=== PATIENT | female | born 1955 | race Caucasian/White ===

== ENCOUNTER 2019-09-20 09:48 | Outpatient (CLI) | payer MEDICARE, SELFPAY ==
--- NOTE | ~2019-09-20 | MM_ITS ---
EXAMINATION: MM screening rima BI w jez HISTORY: Screening mammogram, family history of breast cancer in her mother and daughter. TECHNIQUE: Craniocaudal and mediolateral oblique 3-D tomosynthesis images were obtained and synthetic 2-D images were generated. CAD analysis was submitted and interpreted. COMPARISON: 04/13/2018 BREAST PARENCHYMAL COMPOSITION: The breasts are almost entirely fatty. FINDINGS: There is no evidence of suspicious mass, calcification, or architectural distortion to sugg est malignancy in either breast. There has been no suspicious interval change. IMPRESSION: 1. No mammographic evidence of malignancy. 2. Recommend routine screening mammography in one year. BI-RADS Category 1: Negative Reviewed, dictated and finalized at location A.
== END 2019-09-20 09:49 | disposition home or self-care (01) ==
PROVIDERS: PCP Family Medicine; Visit Provider Physician Assistant
DX: Z12.31 Encounter for screening mammogram for malignant neoplasm of breast (principal)
CPT/HCPCS: 77063; 77067

== ENCOUNTER 2019-12-14 11:17 | Emergency (ER) | payer MEDICARE, SELFPAY ==
--- NOTE | ~2019-12-14 | XR_ITS ---
XR chest 1V portable DATE: 12/14/2019 12:03 INDICATION: Cough, shortness of breath TECHNIQUE: Portable AP chest on 12/14/2019 at 1202 hours COMPARISON: None FINDINGS: Normal heart size. No hilar or mediastinal enlargement. No pulmonary infiltrate or consolid ation, pleural effusion or pulmonary vascular congestion or pneumothorax. IMPRESSION: No active cardiopulmonary disease Reviewed, dictated and finalized at location A.
[2019-12-14 11:19] VITALS: BP 161/84; PULSE 111; RESP 20; TEMP 36.3; O2SAT 100
--- NOTE | 2019-12-14 11:22 | ECG_ITS ---
Measurements Intervals [place] Rate: 110 P: 52 AK: 154 QRS: 14 QRSD: 82 T: 24 QT: 327 QTc: 444 Interpretive Statements SINUS TACHYCARDIA POSSIBLE LEFT ATRIAL ENLARGEMENT BASELINE WANDER- II, III, AVR, AVL, AVF ABNORMAL ECG Electronically Signed On 12-14-2019 14:18:53 CDT by Jonny Johnson D.O.
[2019-12-14 11:53] VITALS: PULSE 96
[2019-12-14 12:01] LABS: Basophils Percent Auto 0.3 % (0.2-1.2); Eosinophils Absolute Auto 0.3 K/mm3 (0-0.3); Eosinophils Percent Auto 4.3 % (0-4.4); Hematocrit 29.4 % (37.0-47.0); Hemoglobin 8.3 g/dL (12.0-15.0); Immature Granulocyte Absolute 0.03 K/mm3 (0.00-0.031); Immature Granulocyte Percent A 0.4 % (0-0.5); Lymphocytes Absolute Auto 1.57 K/mm3 (0.9-3.2); Lymphocytes Percent Auto 21.1 % (18.3-44.2); Mean Corpuscular HGB Conc 28.2 g/dl (32-36); Mean Corpuscular Hemoglobin 18.8 pg (26-34); Mean Corpuscular Volume 66.7 fl (80-100); Mean Platelet Volume 10.2 fl (7.4-10.4); Monocytes Absolute Auto 0.6 K/mm3 (0.1-0.6); Monocytes Percent Auto 8.5 % (2.6-8.5); Neutrophils Absolute Auto 4.9 K/mm3 (1.3-6.7); Neutrophils Percent Auto 65.4 % (45.5-73.1); Platelet Count Result 401 k/mm3 (150-375); Red Blood Count 4.41 M/mm3 (4.2-5.4); Red Cell Distribution Width 17.8 % (11.5-14.5); White Blood Count 7.4 K/mm3 (4.5-10.0)
[2019-12-14 12:05] LABS: Hypochromasia 3+ (NORMAL); Ovalocytes 1+ (NORMAL); Platelet Estimate Increased (Adequate); Stomatocytes 1+ (NORMAL)
[2019-12-14 12:09] LABS: Lactic Acid Reflex 1.6 mmol/L (0.7-2.1)
[2019-12-14 12:10] LABS: Blood Urea Nitrogen 10 mg/dL (7-17); Calcium 9.8 mg/dL (8.4-10.2); Carbon Dioxide 26 mmol/L (22-30); Chloride 107 mmol/L (98-107); Estimated CRCL calculation 78 ml/min; Estimated Glomerular Filt Rate > 60; Glucose 91 mg/dL (65-105); Potassium 3.7 mmol/L (3.4-5.0); Sodium 140 mmol/L (137-145)
[2019-12-14 12:21] LABS: Troponin I < 0.012 ng/mL (0.000-0.034)
[2019-12-14 12:46] VITALS: BP 123/58; PULSE 86; RESP 16; O2SAT 96
--- NOTE | 2019-12-14 13:29 | ED.SOB ---
HPI - SOB/Dyspnea General Chief Complaint: Shortness of Breath/Dyspnea Stated Complaint: SOB, cough Time Seen by Provider: 12/14/19 11:28 History of Present Illness HPI Narrative: Patient is a 64-year-old female who presents the ER with shortness of breath. Ongoing for the last couple weeks. Worse with exertion like walking up her stairs. No association with chest pain or chest pressure. No nausea/vomiting/diaphoresis. She has developed a cough over the last week. No known sick contacts. She has worked as a business development manager. No diarrhea or constipation, no weight changes. Contacted her PCP who recommended she obtain COVID evaluation. Related Data Home Medications Medication Instructions Recorded Confirmed lisinopril 12/14/19 Allergies Allergy/AdvReac Type Severity Reaction Status Date / Time Penicillins Allergy Unknown Itching Verified 12/14/19 11:22 Review of Systems Review of Systems: All systems reviewed & are unremarkable except as noted in HPI and below Constitutional: Constitutional: Denies chills, Denies fever(s) and Denies weakness ENT: Denies nasal congestion and Denies sore throat Cardiovascular: Cardiovascular: Denies chest pain and Denies radiating jaw, neck or arm pain Respiratory: Respiratory: Denies chest congestion, Reports cough, Reports dyspnea and Denies wheezing Gastrointestinal: Gastrointestinal: Denies abdominal pain, Denies nausea and Denies vomiting Neurologic: Denies dizziness, Denies numbness and Denies weakness PMFSH Past Medical History Medical History (Updated 12/14/19 @ 14:19 by Enrique Lackey MD) Hypertension Surgical History Surgical History (Updated 12/14/19 @ 14:14 by Enrique Lackey MD) No pertinent past surgical history Social History Social History (Updated 12/14/19 @ 14:15 by Enrique Lackey MD) Smoking status: Never smoker Gender identity (if verbalized by the patient): Female Exam Narrative: Exam Narrative: GENERAL: Well-appearing, well-nourished, and in no acute distress. HEAD: Normocephalic, atraumatic. ENT: Mucous membranes moist. NECK: Supple. CHEST: Clear to auscultation. No respiratory distress. HEART: Regular rate and rhythm. No murmur heard. Normal peripheral pulses. ABDOMEN: Soft, nontender, nondistended EXTREMITIES: Normal range of motion. No edema. SKIN: Warm, dry, no rash. NEURO: Alert and oriented x3. PSYCH: Normal mood and affect. Course Course Emergency Course: Patient informed of results. Reports that she gave up eating meat 3 years ago. Has never been told she was anemic before other than during . Will send anemia studies and start her on iron as well as multivitamin. She should follow-up with her primary care doctor. Symptoms likely due to anemia. Vital Signs Vital signs: Vital Signs Temperature 97.4 F L 12/14/19 11:19 Pulse Rate 111 H 12/14/19 11:19 Respiratory Rate 20 12/14/19 11:19 Blood Pressure 161/84 H 12/14/19 11:19 Pulse Oximetry 100 12/14/19 11:19 Temperature 97.4 F L 12/14/19 11:19 Pulse Rate 86 12/14/19 12:46 Respiratory Rate 16 12/14/19 12:46 Blood Pressure 123/58 L 12/14/19 12:46 Pulse Oximetry 96 12/14/19 12:46 MDM - SOB/Dyspnea Lab Data Result diagrams: 12/14/19 11:44 12/14/19 11:44 Labs: Lab Results 12/14/19 12/14/19 12/14/19 Range/Units 11:44 11:44 11:44 WBC 7.4 (4.5-10.0) K/mm3 RBC 4.41 (4.2-5.4) M/mm3 Hgb 8.3 L (12.0-15.0) g/dL Hct 29.4 L (37.0-47.0) % MCV 66.7 L (80-100) fl MCH 18.8 L (26-34) pg MCHC 28.2 L (32-36) g/dl RDW 17.8 H (11.5-14.5) % Plt Count 401 H (150-375) k/mm3 MPV 10.2 (7.4-10.4) fl Immature Gran % (Auto) 0.4 (0-0.5) % Neut % (Auto) 65.4 (45.5-73.1) % Lymph % (Auto) 21.1 (18.3-44.2) % [place] % (Auto) 8.5 (2.6-8.5) % Eos % (Auto) 4.3 (0-4.4) % Baso % (Auto) 0.3 (0.2-1.2) % Lymph # (Auto) 1.57 (0.9-3.2)
[2019-12-14 13:51] VITALS: BP 126/63; PULSE 92; RESP 18; O2SAT 99
[2019-12-14 14:41] VITALS: BP 124/74; PULSE 90; RESP 16; O2SAT 99
[2019-12-14 16:20] LABS: Folic Acid > 20.0 ng/mL (2.76->20)
[2019-12-16 15:57] LABS: SARS-CoV-2 RNA PCR Negative
== END 2019-12-14 14:44 | disposition home or self-care (01) ==
PROVIDERS: Emergency Provider Emergency Medicine; PCP Family Medicine
DX: D64.9 Anemia, unspecified (principal); Z20.828 Contact with and (suspected) exposure to other viral communicable diseases; I10 Essential (primary) hypertension; R00.0 Tachycardia, unspecified; R94.31 Abnormal electrocardiogram [ECG] [EKG]
CPT/HCPCS: 36415; 71045; 80048; 82607; 82728; 82746; 83540; 83550; 83605; 84484; 85025; 87040; 87635; 93005; 99284; C9803; U0003

== ENCOUNTER 2020-02-05 10:22 | Emergency (ER) | payer MEDICARE, SELFPAY ==
--- NOTE | ~2020-02-05 | CT_ITS ---
EXAMINATION: CT abdomen pelvis w con EXAM DATE: 02/05/2020 11:21 INDICATION: Anemia. TECHNIQUE: Spiral CT of the abdomen and pelvis was performed following intravenous injection of 100 m L Omnipaque 350. Axial, coronal and sagittal images were reviewed. The dose-length product (DLP) fo r this examination was 1342.26 mGy-cm. The exposure was tailored according to patient size (auto mA exposure control), and iterative reconstruction (ASIR) was used as additional dose reduction techniqu e. There is no prior study for comparison. FINDINGS: The liver, spleen, adrenal glands and pancreas are unremarkable. Gallbladder is unremarkab le. No biliary obstruction. Portal and splenic veins are patent. Kidneys enhance symmetrically. T here is no hydronephrosis. The uterus is unremarkable. The bladder is unremarkable. There is no retroperitoneal or pelvic lymphadenopathy. The appendix is normal. There are a few scattered colonic diverticulosis. There is no adjacent infla mmatory change to suggest diverticulitis. There is moderate-sized gastroesophageal hiatal hernia. Th ere is expected amount of colonic stool. No free intraperitoneal gas. The heart is normal in size . There are no pericardial or pleural effusions. The lung bases are unremarkable. There are no ost eoblastic or osteolytic lesions identified. IMPRESSION: 1. Moderate-sized gastroesophageal hiatal hernia. 2. Mild colonic diverticulosis. Reviewed, dictated and finalized at location A.
--- NOTE | ~2020-02-05 | XR_ITS ---
EXAMINATION: XR chest 2V EXAM DATE: 02/05/2020 11:07 INDICATION: Weakness, central chest pain for 3 weeks. TECHNIQUE: Frontal and lateral projections of the chest obtained and reviewed. Comparison is made to prior examination from 12/14/2019. FINDINGS: The lungs are clear. There are no pleural effusions. The cardiomediastinal silhouette is within normal limits. There is no pneumothorax suspected. The bones and soft tissues are unremarkab le. IMPRESSION: No acute cardiopulmonary findings. Reviewed, dictated and finalized at location A.
[2020-02-05 10:26] VITALS: BP 143/77; PULSE 115; RESP 18; TEMP 37; O2SAT 97
--- NOTE | 2020-02-05 10:31 | ECG_ITS ---
Measurements Intervals [place] Rate: 113 P: 47 MT: 155 QRS: 3 QRSD: 80 T: 30 QT: 311 QTc: 427 Interpretive Statements SINUS TACHYCARDIA VOLTAGE CRITERIA FOR LVH MINIMAL Q WAVES- DIFFUSE LEADS BORDERLINE T WAVE ABNORMALITY- INFERIOR LEADS ABNORMAL ECG Electronically Signed On 02-05-2020 10:42:01 CDT by Jonny Johnson D.O.
[2020-02-05 10:38] VITALS: PULSE 113
--- NOTE | 2020-02-05 10:59 | ED.WEAKNESS ---
HPI - Weakness General Chief complaint: Weakness Stated complaint: weakness, lightheaded Time Seen by Provider: 02/05/20 10:47 History of Present Illness HPI Narrative: Patient presents with a friend for weakness and shortness of breath. She has known iron deficiency anemia. This was diagnosed in November. the cause has not been determined. She was going to her PCP this morning when she was too weak to get out of the car. She has resting tachycardia, but with activity her heart rate goes up and she becomes more short of breath. She has no visible rectal bleeding or from any other site. She has been taking iron. 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 Previous surgeries include tubal ligation and tonsillectomy. She does not smoke cigarette, has an occasional alcoholic beverage, does not do marijuana. She has not been sick otherwise. She has an occasional dry cough. She does have sweats and chills. Complaint: generalized weakness Onset (ago): month(s) Duration: constant Location: generalized Severity: moderate Relieving factors: none Exacerbating factors: exertion Context: history of similar Associated symptoms: chest pain (Rarely), diaphoresis and shortness of breath Related Data Home Medications Medication Instructions Recorded Confirmed lisinopril 12/14/19 Allergies Allergy/AdvReac Type Severity Reaction Status Date / Time Penicillins AdvReac Unknown Itching Verified 02/05/20 10:41 Review of Systems Review of Systems: Narrative: CONSTITUTIONAL: Denies fever, but has had chills, and sweats. EYES: Denies visual changes, redness, or discharge. ENT: Denies rhinorrhea, congestion, sore throat, or otalgia. CARDIOVASCULAR: Occasional chest pain, palpitations, and mild edema. RESPIRATORY: Occasional dry cough and significant dyspnea. GASTROINTESTINAL: Denies abdominal pain, nausea, vomiting, or diarrhea. GENITOURINARY: Denies dysuria or hematuria. SKIN: Denies rash or itching. MUSCULOSKELETAL: Denies back pain, joint pain, or myalgia. NEUROLOGIC: Denies headache, numbness, or weakness. . All systems reviewed & are unremarkable except as noted in HPI and below PMFSH Past Medical History Medical History Hypertension Surgical History Surgical History (Updated 02/05/20 @ 11:02 by Aminah Montanez MD) History of tonsillectomy History of tubal ligation No pertinent past surgical history Social History Social History (Updated 02/05/20 @ 11:03 by Aminah Montanez MD) Smoking status: Former smoker Alcohol intake: current Substance use: never Gender identity (if verbalized by the patient): Female Exam Narrative: Exam Narrative: GENERAL: Well-appearing, well-nourished, with tachycardia and tachypnea. HEAD: Normocephalic, atraumatic. EYES: PERRLA and EOMI. ENT: Nares clear, no rhinorrhea or epistaxis. Mucous membranes moist. NECK: Supple. CHEST: Clear to auscultation. No respiratory distress. HEART: Regular rate and rhythm. No murmur heard. Normal peripheral pulses. ABDOMEN: Soft, nontender, nondistended, normal active bowel sounds. EXTREMITIES: Normal range of motion. No edema. SKIN: Warm, dry, no rash. Pale nailbeds. NEURO: No focal deficits. Alert and oriented x3. PSYCH: Normal mood and affect. Course Reevaluation(s) Reevaluation #1: Went back in the room to talk about the results with the patient and her friend. The hemoglobin is the same, and not low enough to need a blood transfusion. I did the preliminary anemia tests, for the bias binding folder, and I recommend that they choose 1 of the hematologists on our Eric list, and make an appointment. She should continue her oral iron. Date: 02/05/20 Time: 12:12 Vital Signs Vital signs: Vital Signs Temperature 98.6 F 02/05/20 10:26 Pulse Rate 115 H 02/05/20 10:26 Respiratory Rate 18 02/05/20 10:26 Blood Pressure 143/77 H 02/05/20 10:26 Pulse Oximetry 97
[2020-02-05 11:15] LABS: Estimated CRCL calculation 92 ml/min; Estimated Glomerular Filt Rate > 60
[2020-02-05 11:17] LABS: Basophils Percent Auto 0.2 % (0.2-1.2); Eosinophils Absolute Auto 0.2 K/mm3 (0-0.3); Eosinophils Percent Auto 2.2 % (0-4.4); Hematocrit 31.1 % (37.0-47.0); Hemoglobin 8.6 g/dL (12.0-15.0); Immature Granulocyte Absolute 0.03 K/mm3 (0.00-0.031); Immature Granulocyte Percent A 0.4 % (0-0.5); Immature Platelet Fraction Pct 2.2 % (0.9-11.2); Immature Reticulocyte Fraction 34.6 % (3.0-15.9); Lymphocytes Absolute Auto 1.26 K/mm3 (0.9-3.2); Lymphocytes Percent Auto 15.1 % (18.3-44.2); Mean Corpuscular HGB Conc 27.7 g/dl (32-36); Mean Corpuscular Hemoglobin 18.3 pg (26-34); Mean Platelet Volume 10.7 fl (7.4-10.4); Monocytes Absolute Auto 0.5 K/mm3 (0.1-0.6); Neutrophils Absolute Auto 6.4 K/mm3 (1.3-6.7); Neutrophils Percent Auto 76.1 % (45.5-73.1); Platelet Count Result 408 k/mm3 (150-375); Red Blood Count 4.71 M/mm3 (4.2-5.4); Red Cell Distribution Width 21.1 % (11.5-14.5); Reticulocyte Hemoglobin Conten 18.5 pg (28.2-35.7); Reticulocyte Percent 2.16 % (0.7-4.3); White Blood Count 8.3 K/mm3 (4.5-10.0)
[2020-02-05 11:27] LABS: Anisocytosis 2+ (NORMAL); Hypochromasia 2+ (NORMAL); Platelet Estimate Adequate (Adequate)
[2020-02-05 11:29] LABS: Alanine Aminotransferase 14 U/L (4-35); Albumin Level 4.3 g/dL (3.5-5.1); Alkaline Phosphatase 55 U/L (38-126); Aspartate Amino Transferase 28 U/L (14-36); Bilirubin,Total 0.2 mg/dL (0.2-1.3); Blood Urea Nitrogen 12 mg/dL (7-17); Calcium 9.6 mg/dL (8.4-10.2); Carbon Dioxide 26 mmol/L (22-30); Chloride 104 mmol/L (98-107); Estimated CRCL calculation 80 ml/min; Estimated Glomerular Filt Rate > 60; Glucose 120 mg/dL (65-105); Sodium 137 mmol/L (137-145)
[2020-02-05 11:49] LABS: INR 0.9; Prothrombin Time 12.3 Seconds (11.1-14.7)
[2020-02-05 11:50] LABS: Iron 21 ug/dL (37-170)
[2020-02-05 11:54] LABS: Add Urine Microscopic? YES; Appearance Urine Clear (Clear); Bacteria Urine Trace /hpf; Bilirubin Urine Negative (Negative); Blood Urine Negative (Negative); Color Urine Colorless (Yellow); Glucose Urine UA Negative (Negative); Ketones Urine Negative (Negative); Leukocyte Esterase Ur 1+ LEU/UL (Negative); Nitrate Urine Negative (Negative); Protein Urine Negative (Negative); RBC Urine 0-2 /hpf (0-2); Squamous Epithelial Cell Urine Rare /hpf (Few); Urobilinogen Urine Negative mg/dL (<2.0)
[2020-02-05 11:55] LABS: NT Pro B Type Natriuretic Pept 24 PG/ML (5-100); Troponin I < 0.012 ng/mL (0.000-0.034)
[2020-02-05 11:58] LABS: Specific Grav Ur 1.036 (1.001-1.035)
[2020-02-05 12:00] LABS: Percent Iron Saturation 5 % (20-50)
[2020-02-05 12:25] VITALS: BP 139/72; PULSE 110; RESP 17; O2SAT 98
== END 2020-02-05 12:26 | disposition home or self-care (01) ==
PROVIDERS: Emergency Provider Emergency Medicine; PCP Family Medicine
DX: D64.9 Anemia, unspecified (principal); R00.0 Tachycardia, unspecified; I10 Essential (primary) hypertension; R06.02 Shortness of breath
CPT/HCPCS: 36415; 71046; 74177; 80053; 81001; 83540; 83550; 83880; 84443; 84484; 85025; 85046; 85055; 85610; 93005; 99284; Q9967

== ENCOUNTER 2020-07-20 15:54 | Emergency (ER) | payer MEDICARE, SELFPAY ==
--- NOTE | 2020-07-20 15:56 | ED.FEMALEGU ---
HPI - Female Genitourinary General Chief complaint: Urogenital-Female Stated complaint: pos uti Time Seen by Provider: 07/20/20 16:45 Source: patient and RN notes reviewed Mode of arrival: ambulatory Limitations: no limitations History of Present Illness HPI Narrative: 65-year-old female presents with concern for urinary tract infection. Reports suprapubic discomfort, pressure, dysuria, frequency, urgency. She denies fever, malaise, chills, sweats, nausea, vomiting, back pain. MD elicited complaint: UTI Related Data Home Medications Medication Instructions Recorded Confirmed lisinopril 20 mg PO DAILY 12/14/19 07/20/20 Allergies Allergy/AdvReac Type Severity Reaction Status Date / Time Penicillins AdvReac Unknown Itching Verified 02/05/20 10:41 Review of Systems Review of Systems: Narrative: CONSTITUTIONAL: Denies malaise, chills, sweats, or fever. CARDIOVASCULAR: Denies chest pain, palpitations, or edema. RESPIRATORY: Denies cough or dyspnea. GASTROINTESTINAL: Denies abdominal pain, nausea, vomiting, diarrhea, bloody, or mucous stools. GENITOURINARY: Reports dysuria, frequency, urgency. Denies flank pain or hematuria. MUSCULOSKELETAL: Denies back pain or myalgia. All systems reviewed & are unremarkable except as noted in HPI and below PMFSH Past Medical History Medical History (Updated 07/20/20 @ 16:55 by Tala Parks NP) Hypertension Surgical History Surgical History (Updated 02/05/20 @ 11:02 by Aminah Montanez MD) History of tonsillectomy History of tubal ligation No pertinent past surgical history Social History Social History (Updated 02/05/20 @ 11:03 by Aminah Montanez MD) Smoking status: Former smoker Alcohol intake: current Substance use: never Gender identity (if verbalized by the patient): Female Comments At time of signature, agree with nursing past medical, surgical, social and family history. There is no relevant family history pertinent to the presenting complaint Exam Narrative: Exam Narrative: GENERAL: Well-appearing, well-nourished, and in no acute distress. HEAD: Normocephalic. EYES: PERRLA, conjunctivae clear. NECK: Supple. No lymphadenopathy CHEST: Clear to auscultation. No respiratory distress. HEART: Regular rate and rhythm. ABDOMEN: Soft, nontender upon palpation, nondistended, normal active bowel sounds, no palpable or pulsatile masses, no guarding. No CVA tenderness SKIN: Warm, dry, no rash. NEURO: Alert and oriented x3. PSYCH: Normal mood and affect Course Course Emergency Course: Patient is aware of diagnosis, understands and agrees to treatment plan. Anticipatory guidance given. Patient agrees to follow-up as directed and is aware of reasons to seek care at the emergency department. Portions of this record may have been created with voice recognition software Vital Signs Vital signs: Vital Signs Temperature 99.0 F 07/20/20 16:30 Pulse Rate 90 07/20/20 16:30 Respiratory Rate 18 07/20/20 16:30 Blood Pressure 126/84 07/20/20 16:30 Pulse Oximetry 96 07/20/20 16:30 Temperature 99.0 F 07/20/20 16:30 Pulse Rate 90 07/20/20 16:30 Respiratory Rate 18 07/20/20 16:30 Blood Pressure 126/84 07/20/20 16:30 Pulse Oximetry 96 07/20/20 16:30 Reviewed. MDM - Female Genitourinary MDM Narrative Medical decision making narrative: Exam findings and UA show no acute concerns or changes; patient is non-toxic appearing and is in no distress. Patient is appropriate for outpatient treatment and follow-up. Lab Data Labs: Urine Glucose Negative Reference Range: Negative Urine Bilirubin Negative Reference Range: Negative Urine Ketone Trace Reference Range: Negative Urine Specific [place] 1.020
[2020-07-20 16:30] VITALS: BP 126/84; PULSE 90; RESP 18; TEMP 37.2; O2SAT 96
== END 2020-07-20 17:03 | disposition home or self-care (01) ==
PROVIDERS: Emergency Provider Nurse Practitioner; PCP Family Medicine
DX: R30.0 Dysuria (principal); R35.0 Frequency of micturition; R39.15 Urgency of urination; I10 Essential (primary) hypertension; Z87.891 Personal history of nicotine dependence
CPT/HCPCS: 81003; 87077; 87086; 87088; 87186; 99213; G0463

== ENCOUNTER 2021-11-08 02:02 | Day surgery (SDC) | payer MEDICARE, SELFPAY ==
[2021-11-08 12:45] VITALS: BP 134/71; RESP 17; TEMP 36.4; O2SAT 100
[2021-11-08] MEDS: LACTATED RINGERS 1,000 ML 150 ML IV CONT (13:01)
--- NOTE | 2021-11-08 13:13 | WPDGICN ---
Assessment and Plan Assessment and plan (1) Occult blood in stools: Code(s): R19.5 - Other fecal abnormalities Status: Acute Assessment and Plan: Patient found to have occult blood in stool. Because of chronic anemia colonoscopy will be performed. Further recommendations will be given after endoscopy patient has a distant history of colon polyp. (2) Chronic anemia: Code(s): D64.9 - Anemia, unspecified Status: Acute Assessment and Plan: Patient has had chronic ongoing anemia. For this reason she has been followed by Hematology at [facility]. Plan is for colonoscopy exclude any contributing GI etiology. (3) Mild acid reflux: Code(s): K21.9 - Gastro-esophageal reflux disease without esophagitis Status: Acute Assessment and Plan: Patient reports symptoms of acid regurgitation. She denies any significant heartburn however. But taste gastric contents within her mouth frequently. If colonoscopy unfruitful then EGD may be suggested. GI Consult Note Consult date/time: 11/08/21 13:13 HPI: Faby Parsons is a 66 year old female Presents for screening colonoscopy. Patient has a long history of anemia. She states she has been on iron replacement for at least 2 years. Currently followed by Hematology at [facility]. Patient recently found to have occult blood in stool and for this reason referred for colonoscopy. Patient has a history of colon polyps identified 2010. Two thousand seventeen colonoscopy was unremarkable. Patient does admit to acid regurgitation. She denies any significant heartburn however. She has no obvious bleeding. But does report bright red blood per rectum on 1 occasion with taking colonoscopy preparation. She denies in any abdominal or rectal pain. Her family history is noncontributory. Review of Systems Review of Systems: All systems reviewed & are unremarkable except as noted in HPI and below [facility] Past Medical History Medical History (Updated 11/08/21 @ 13:16 by Jerome Kerns MD) Hypertension Surgical History Surgical History (Updated 02/05/20 @ 11:02 by Aminah Montanez MD) History of tonsillectomy History of tubal ligation No pertinent past surgical history Social History Social History (Updated 02/05/20 @ 11:03 by Aminah Montanez MD) Smoking status: Former smoker Alcohol intake: current Substance use: never Gender identity (if verbalized by the patient): Female Meds Home Medications and Allergies Home Medications Medication Instructions Recorded Confirmed Type ferrous sulfate 324 mg PO DAILY #30 tablet 12/14/19 11/08/21 Rx lisinopril 20 mg PO DAILY 12/14/19 11/08/21 History multivitamin 1 tablet PO DAILY #30 tablet 12/14/19 11/08/21 Rx ciprofloxacin HCl 500 mg PO Q12H 5 Days #10 tablet 07/20/20 11/08/21 Rx Allergies Allergy/AdvReac Type Severity Reaction Status Date / Time Penicillins AdvReac Unknown Itching Verified 11/08/21 12:43 Vital Signs Vital Signs - 24 hr 11/08/21 12:45 Temperature 97.5 F L Respiratory Rate 17 Blood Pressure 134/71 Pulse Oximetry 100 Exam Narrative: Physical exam reveals patient to be alert. Vital signs stable. HEENT exam is unremarkable. Patient is anicteric. Lungs are clear to auscultation and percussion. Heart is without murmur or extra sounds. Abdominal exam bowel sounds present soft nontender with no organomegaly. Digital external rectal exam is normal.
--- NOTE | 2021-11-08 13:21 | WPDANESEPPF ---
Anes - Initial Pre Proc Eval Procedure: Operation Date: 11/08/21 14:00 Proposed Procedures p Colonoscopy - Jerome Kerns MD Date/Time: 11/08/21 13:21 Surgeon: Jerome Kerns MD Pre Op Diagnosis: gi bleed Patient Data Age: 66 Gender: F Height: 1.63 m Weight: 85.4 kg Last Vital Signs Temp 97.5 F L 11/08/21 12:45 Resp 17 11/08/21 12:45 BP 134/71 11/08/21 12:45 Pulse Ox 100 11/08/21 12:45 Allergies Allergy/AdvReac Type Severity Reaction Status Date / Time Penicillins AdvReac Unknown Itching Verified 11/08/21 12:43 Home Medications Medication Instructions Recorded Confirmed Type ferrous sulfate 324 mg PO DAILY #30 tablet 12/14/19 11/08/21 Rx lisinopril 20 mg PO DAILY 12/14/19 11/08/21 History multivitamin 1 tablet PO DAILY #30 tablet 12/14/19 11/08/21 Rx ciprofloxacin HCl 500 mg PO Q12H 5 Days #10 tablet 07/20/20 11/08/21 Rx Patient hx anesthesia problems: none Family hx anesthesia problems: none Results Review: All pre-operative results and documents have been reviewed as part of the pre-operative evaluation. [facility], [facility] Past Medical History Medical History (Updated 11/08/21 @ 13:16 by Jerome Kerns MD) Hypertension Surgical History Surgical History (Updated 02/05/20 @ 11:02 by Aminah Montanez MD) History of tonsillectomy History of tubal ligation No pertinent past surgical history Social History Social History (Updated 02/05/20 @ 11:03 by Aminah Montanez MD) Smoking status: Former smoker Alcohol intake: current Substance use: never Gender identity (if verbalized by the patient): Female Anes - Eval Final PreProcedure Day of Procedure 11/08/21 13:21 Patient weight: obese Heart: regular rate and rhythm Lungs: clear to auscultation Airway: Mallampati scale class II Neurological: alert and oriented Last oral intake: >/= 8 hours ASA classification: III Emergent: no Anesthetic plan: proceed Anesthesia type and monitoring: general GIVS and standard monitoring Results Review: All pre-operative results and documents have been reviewed as part of the pre-operative evaluation. Informed Consent: The patient's anesthetic plan and its attendant risks and benefits were discussed with the patient/family/POA. Questions were solicited and answers provided to the satisfaction of the patient/family/POA.
[2021-11-08 13:38] VITALS: BP 90/52; PULSE 73; RESP 15; O2SAT 93
[2021-11-08 13:48] VITALS: BP 120/60; PULSE 74; RESP 20; O2SAT 97
[2021-11-08 13:58] VITALS: BP 110/66; PULSE 69; RESP 15; O2SAT 100
[2021-11-08 14:07] LABS: Basophils Percent Auto 0.4 % (0.2-1.2); Eosinophils Absolute Auto 0.3 K/mm3 (0-0.3); Eosinophils Percent Auto 5.1 % (0-4.4); Hematocrit 36.4 % (37.0-47.0); Hemoglobin 11.2 g/dL (12.0-15.0); Immature Granulocyte Absolute 0.01 K/mm3 (0.00-0.031); Immature Granulocyte Percent A 0.2 % (0-0.5); Lymphocytes Absolute Auto 1.04 K/mm3 (0.9-3.2); Lymphocytes Percent Auto 18.3 % (18.3-44.2); Mean Corpuscular HGB Conc 30.8 g/dl (32-36); Mean Corpuscular Hemoglobin 25.2 pg (26-34); Mean Platelet Volume 10.3 fl (7.4-10.4); Monocytes Absolute Auto 0.3 K/mm3 (0.1-0.6); Monocytes Percent Auto 5.1 % (2.6-8.5); Neutrophils Percent Auto 70.9 % (45.5-73.1); Platelet Count Result 231 k/mm3 (150-375); Red Blood Count 4.44 M/mm3 (4.2-5.4); Red Cell Distribution Width 16.8 % (11.5-14.5); White Blood Count 5.7 K/mm3 (4.5-10.0)
[2021-11-08 14:24] LABS: Alanine Aminotransferase 11 U/L (4-35); Albumin Level 3.7 g/dL (3.5-5.1); Alkaline Phosphatase 57 U/L (38-126); Aspartate Amino Transferase 21 U/L (14-36); Bilirubin,Total 0.2 mg/dL (0.2-1.3)
[2021-11-08 14:50] LABS: Carcinoembryonic Antigen 1.2 ng/mL (0.0-3.0)
== END 2021-11-08 14:34 | disposition home or self-care (01) ==
PROVIDERS: PCP Family Medicine; Visit Provider Internal Medicine Gastroenterology
PROC: 0DJD8ZZ Inspection of Lower Intestinal Tract, Via Natural or Artificial Opening Endoscopic (ICD-10-PCS; CPT 45378; principal; 2021-11-08 14:00)
DX: C18.0 Malignant neoplasm of cecum (principal); R19.5 Other fecal abnormalities; D64.9 Anemia, unspecified; K57.30 Diverticulosis of large intestine without perforation or abscess without bleeding; K64.8 Other hemorrhoids; K21.9 Gastro-esophageal reflux disease without esophagitis
CPT/HCPCS: 45380; 36415; 80076; 82378; 85025; 88305; J2704; J7120

== ENCOUNTER 2022-01-10 16:23 | Emergency (ER) | payer MEDICARE, SELFPAY ==
--- NOTE | ~2022-01-10 | XR_ITS ---
EXAM: XR knee LT 2V DATE: 01/10/2022 17:25 HISTORY: swelling, pain . COMPARISON: None available. FINDINGS: Slightly decreased mineralization. No fracture or dislocation. No lytic or blastic lesion. Tricompartmental osteoarthritis. No erosion or periosteal change. Soft tissues within normal limits. Large volume joint effusion. IMPRESSION: Large left knee joint effusion. No acute fracture or dislocation. Reviewed, dictated and finalized at location K.
--- NOTE | ~2022-01-10 | XR_ITS ---
EXAM: XR knee RT 2V DATE: 01/10/2022 17:26 HISTORY: swelling, pain . COMPARISON: None available. FINDINGS: Slightly decreased mineralization. No fracture or dislocation. No lytic or blastic lesion. Tricompartmental osteoarthritis. No erosion or periosteal change. Soft tissues within normal limits. Large volume joint fluid. IMPRESSION: Large right knee joint effusion. No acute fracture or dislocation. Reviewed, dictated and finalized at location K.
[2022-01-10 16:26] VITALS: BP 146/100; PULSE 102; RESP 18; TEMP 36.6; O2SAT 100
[2022-01-10] MEDS: ACETAMINOPHEN 500 MG TABLET 1000 MG PO (18:20)
--- NOTE | 2022-01-10 18:33 | ED.LOWEXIN ---
HPI - Extremity Injury (Lower) General Chief Complaint: Extremity Injury, Lower Stated Complaint: Bilateral Knee Swelling Time Seen by Provider: 01/10/22 16:35 History of Present Illness HPI Narrative: Patient is a 66 year old female here for evaluation of bilateral knee swelling x 3 days. Patient states that she was on a hiking trip last week and was exerting herself heavily. She is not usually physically active. Notes that her right knee became swollen the day afterwards, improved with SHABANA wrap. Today, her left knee became swollen as well, which prompted her ED evaluation. She has been walking on the knee but does note it is painful. Denies calf pain, swelling, fevers, chills, rash. Did notice a tick on her but it was only attached for 5 minutes or so. She did have surgery at the end of November for colon cancer. Related Data Home Medications Medication Instructions Recorded Confirmed lisinopril 20 mg tablet 20 mg PO DAILY 12/14/19 11/08/21 Allergies Allergy/AdvReac Type Severity Reaction Status Date / Time Penicillins AdvReac Unknown Itching Verified 01/10/22 16:29 Review of Systems Review of Systems: Gen.: Denies fevers or chills Eyes: Denies eye pain or visual change ENT: Denies congestion Respiratory: Denies shortness of breath or cough CV: Denies chest pain or palpitations GI: Denies abdominal pain nausea, emesis or diarrhea denies burning, urgency, frequency or hematuria Musculoskeletal: Reports bilateral knee swelling and pain. Neuro: Denies numbness, tingling, weakness or focal weakness Skin: Denies rash Except as documented, all other systems reviewed and negative PMFSH Past Medical History Medical History Hypertension Surgical History Surgical History History of tonsillectomy History of tubal ligation No pertinent past surgical history Social History Social History (Updated 02/05/20 @ 11:03 by Aminah Montanez MD) Smoking status: Former smoker Alcohol intake: current Substance use: never Gender identity (if verbalized by the patient): Female Exam Narrative: APPEARANCE: Well appearing, no pain in distress, well-nourished. Head: Normocephalic and atraumatic. EYES: PERRLA/EOMI, conjunctivae clear NOSE: No nasal drainage EARS: External ear normal in appearance THROAT: Oropharynx is clear. Mucous membranes are moist. NECK: Supple. No adenopathy, no masses. RESPIRATORY: Airway patent, respirations nonlabored. Clear to auscultation bilaterally, no rales, rhonchi, wheezing. CARDIOVASCULAR: Regular rate and rhythm without murmurs, rubs, or gallops. ABDOMINAL: Normoactive bowel sounds. Soft, nontender, nondistended. No rebound tenderness or guarding. MUSCULOSKELETAL: bilateral knee ballottement. no bony tenderness to palpation of patella. No calf tenderness. anterior and posterior drawer test negative. reports pain with flexion of bilateral knees. no pain with passive range of motion. no overlying erythema. Extremities are warm and well-perfused. Moves all extremities well. No edema. NEURO: Normal speech. No focal neurologic deficits. SKIN: Skin is warm and dry. No rashes. PSYCHIATRIC: Normal affect/mood. Course Vital Signs Vital signs: Vital Signs Temperature 97.8 F 01/10/22 16:26 Pulse Rate 102 H 01/10/22 16:26 Respiratory Rate 18 01/10/22 16:26 Blood Pressure 146/100 H 01/10/22 16:26 Pulse Oximetry 100 01/10/22 16:26 Oxygen Delivery Room Air 01/10/22 16:26 Temperature 97.8 F 01/10/22 16:26 Pulse Rate 102 H 01/10/22 16:26 Respiratory Rate 18 01/10/22 16:26 Blood Pressure 146/100 H 01/10/22 16:26 Pulse Oximetry 100 01/10/22 16:26 Oxygen Delivery Room Air 01/10/22 16:26 MDM - Extremity Injury (Lower) MDM Narrative Medical decision making narrative: 66-year-old female here for evaluation of bilateral knee swelling over the
[2022-01-10 18:37] LABS: INR 0.9; Partial Thromboplastin Time 27.6 SECONDS (22.3-36.8); Prothrombin Time 11.4 Seconds (11.1-14.7)
[2022-01-10 18:46] LABS: D Dimer 1.38 ug/mL (<0.48)
[2022-01-10 19:23] LABS: Basophils Percent Auto 0.3 % (0.2-1.2); Eosinophils Absolute Auto 0.3 K/mm3 (0-0.3); Eosinophils Percent Auto 4.7 % (0-4.4); Hematocrit 35.2 % (37.0-47.0); Hemoglobin 10.5 g/dL (12.0-15.0); Immature Granulocyte Absolute 0.01 K/mm3 (0.00-0.031); Immature Granulocyte Percent A 0.2 % (0-0.5); Lymphocytes Absolute Auto 1.77 K/mm3 (0.9-3.2); Lymphocytes Percent Auto 27.1 % (18.3-44.2); Mean Corpuscular HGB Conc 29.8 g/dl (32-36); Mean Corpuscular Hemoglobin 23.8 pg (26-34); Mean Corpuscular Volume 79.6 fl (80-100); Mean Platelet Volume 10.4 fl (7.4-10.4); Monocytes Absolute Auto 0.5 K/mm3 (0.1-0.6); Monocytes Percent Auto 7.2 % (2.6-8.5); Neutrophils Percent Auto 60.5 % (45.5-73.1); Platelet Count Result 266 k/mm3 (150-375); Red Blood Count 4.42 M/mm3 (4.2-5.4); Red Cell Distribution Width 18.3 % (11.5-14.5); White Blood Count 6.5 K/mm3 (4.5-10.0)
[2022-01-10 19:39] LABS: Platelet Estimate Adequate (Adequate)
[2022-01-10 19:40] LABS: Anisocytosis 2+ (NORMAL); Hypochromasia 1+ (NORMAL)
[2022-01-10] MEDS: ENOXAPARIN 100 MG/ML SYRINGE SUB-Q (19:57)
[2022-01-10 19:58] VITALS: BP 129/68; PULSE 75; RESP 16; O2SAT 100
[2022-01-10 20:21] VITALS: BP 139/72; PULSE 74; RESP 16; O2SAT 100
== END 2022-01-10 20:14 | disposition home or self-care (01) ==
PROVIDERS: Physician Assistant; Emergency Provider Emergency Medicine; PCP Family Medicine
DX: M25.462 Effusion, left knee (principal); M25.461 Effusion, right knee; R79.89 Other specified abnormal findings of blood chemistry; I10 Essential (primary) hypertension; Z87.891 Personal history of nicotine dependence
CPT/HCPCS: 36415; 73560; 85025; 85380; 85610; 85730; 96372; 99284; A9270; J1650

== ENCOUNTER 2022-01-11 07:00 | Outpatient (CLI) | payer MEDICARE, SELFPAY ==
--- NOTE | ~2022-01-11 | US_ITS ---
EXAMINATION: US venous doppler [facility] DATE: 01/11/2022 08:07 INDICATION: Bilateral lower limb swelling TECHNIQUE: Chisholm scale images without and with compression and Doppler images of the bilateral lower e xtremity veins were obtained. COMPARISON: None FINDINGS: The right common femoral vein, profunda femoral vein, femoral vein, popliteal vein, peroneal trunk, p osterior tibial veins, and greater saphenous vein are patent. The left common femoral vein, profunda femoral vein, femoral vein, popliteal vein, peroneal trunk, po sterior tibial veins, and greater saphenous vein are patent. IMPRESSION: 1. Patent bilateral lower extremity veins. No evidence of deep venous thrombosis. Reviewed, dictated and finalized at location B. IMPRESSION: 1. Patent bilateral lower extremity veins. No evidence of deep venous thrombosi s.
== END 2022-01-11 07:01 | disposition home or self-care (01) ==
PROVIDERS: PCP Family Medicine; Visit Provider Physician Assistant
DX: M79.89 Other specified soft tissue disorders (principal)
CPT/HCPCS: 93970

== ENCOUNTER 2023-05-04 14:38 | Outpatient (CLI) | payer MEDICARE, SELFPAY ==
--- NOTE | ~2023-05-04 | MM_ITS ---
EXAMINATION: MM screening rima BI w jez HISTORY: Screening mammogram TECHNIQUE: Craniocaudal and mediolateral oblique 3-D tomosynthesis images were obtained and synthetic 2-D images were generated. CAD analysis was submitted and interpreted. COMPARISON: 09/20/2019, 04/13/2018 bilateral screening mammogram examinations BREAST PARENCHYMAL COMPOSITION: There are FINDINGS: There is no evidence of suspicious mass, calcification, or architectural distortion to sugg est malignancy in either breast. There has been no suspicious interval change. IMPRESSION: 1. No mammographic evidence of malignancy. 2. Recommend routine screening mammography in one year. BI-RADS Category 1: Negative Reviewed, dictated and finalized at location A.
== END 2023-05-04 14:39 | disposition home or self-care (01) ==
PROVIDERS: PCP Family Medicine; Visit Provider Nurse Practitioner Family
DX: Z12.31 Encounter for screening mammogram for malignant neoplasm of breast (principal)
CPT/HCPCS: 77063; 77067